=== PATIENT | male | born 1950 | race Two or more races ===

== ENCOUNTER 2016-08-31 12:24 | Emergency (ER) | payer MEDICARE, MEDICAID ==
[~2016-08-31] VITALS: Wt 100.0 kg
[2016-08-31] MEDS ORDERED: traMADol 50 MG TAB PO ONE (13:30)
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
--- NOTE | 2016-08-31 14:13 | RADRPT ---
PROCEDURE: Right knee x-ray CLINICAL INDICATION: trauma, fall TECHNIQUE: AP, lateral and oblique views of the knee were obtained. COMPARISON: None FINDINGS: There is normal mineralization. No acute fracture or dislocation is seen. There is joint space narrowing, subchondral sclerosis seen within the knee joint. There are also ost eophytes. This is more pronounced in the medial compartment. There is no significant soft tissue swelling. There is a suprapatellar joint effusion. 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 Suprapatellar joint effusion. .Yefri Stafford MD, MD Date Time Electronically viewed and signed by .Yefri Stafford MD, on 08/31/2016 14:13 .Esteban
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
[2016-08-31] MEDS ORDERED: KETOROLAC 30 MG INJ IM STA (14:51)
[2016-08-31] MEDS ORDERED: TRAM50TA2 PO (15:12)
[2016-08-31] MEDS ORDERED: NAPR-260 PO (15:12)
[2016-08-31 15:32] VITALS: BP 128/76; PULSE 75; RESP 19; TEMP 98.5
== END 2016-08-31 15:32 | disposition home or self-care (01) ==
LOC: FTE 12:24
DX: S89.91XA Unspecified injury of right lower leg, initial encounter (principal); I10 Essential (primary) hypertension; E11.9 Type 2 diabetes mellitus without complications; W10.9XXA Fall (on) (from) unspecified stairs and steps, initial encounter; Y92.480 Sidewalk as the place of occurrence of the external cause
CPT/HCPCS: 73550; 73562; 73590; 96372; 99284; J1885

== ENCOUNTER 2018-11-12 21:52 | Emergency (ER) | payer OTHER, MEDICAID ==
[~2018-11-12] VITALS: Wt 99.5 kg
[~2018-11-12 21:52] MED LIST: NAPR-985 PO; TRAM50TA2 PO
[2018-11-13] MEDS ORDERED: OXYC-279 PO (01:45)
[2018-11-13] MEDS ORDERED: MED4DP PO (01:45)
[2018-11-13] MEDS ORDERED: NAPR-985 PO (01:45)
[2018-11-13 02:15] VITALS: BP 160/89; PULSE 66; RESP 18
--- NOTE | 2018-11-13 02:18 | ERD ---
ER Documentation Chief Complaint Chief Complaint R ANKLE/ FOOT PAIN, SWEELING X'S 1 DAY HPI 68-year-old male presenting with right ankle pain and right foot pain. Patient states he had swelling for the last day. Denies any fevers. Denies any medic injuries. Has never had this happen before. States that he feels that sharp shooting pain down his foot. Medical history is diabetes and arthritis with hypertension. NKDA. Surgical history ankle surgery to the right ankle. Social history denies ROS All systems reviewed and are negative except as per history of present illness. Medications Home Meds Active Scripts Methylprednisolone* (Medrol* DOSE PACK) 4 Mg/Dose-Pack Tab.ds.pk, 4 MG PO . DIRECTED, #1 PACKET Prov:NINI RIVERA PA-C 11/13/18 Naproxen* (Naprosyn*) 500 Mg Tablet, 500 MG PO BID PRN for PAIN AND/OR INFLAMMATION, #30 TAB Prov:NINI RIVERA PA-C 11/13/18 Oxycodone HCl/Acetaminophen (Percocet 5-325 mg Tablet) 1 Each Tablet, 1 EACH PO DAILY, #5 TAB Prov:NINI RIVERA PA-C 11/13/18 Naproxen* (Naprosyn*) 500 Mg Tablet, 500 MG PO BID PRN for PAIN AND/OR INFLAMMATION, #30 TAB Prov:LINDA PALAFOX PA-C 08/31/16 Tramadol HCl (Tramadol HCl) 50 Mg Tablet, 50 MG PO Q4 PRN for PAIN, #20 TAB Prov:LINDA PALAFOX PA-C 08/31/16 Allergies Allergies: Coded Allergies: No Known Allergy (Unverified , 08/31/16) PMhx/Soc History of Surgery: Yes (shoulder and foot surgery) Hx Cardiac Disorders: Yes (hypertension) Hx Miscellaneous Medical Probl: Yes (diabetes mellitus; constipation; arthritis) Hx Alcohol Use: Yes (socially) Hx Substance Use: No Hx Tobacco Use: No Smoking Status: Never smoker FmHx Family History: No diabetes, No coronary disease, No other Physical Exam Vitals Vital Signs Date Temp Pulse Resp B/P (MAP) Pulse Ox O2 O2 Flow FiO2 Time Delivery Rate 11/12/18 99.6 79 18 153/67 96 21:58 (95) Physical Exam GENERAL: The patient is well-appearing, well-nourished, in no acute distress CHEST: Clear to auscultation bilaterally. There are no rales, wheezes or rhonchi. HEART: Regular rate and rhythm. No murmurs, clicks, rubs or gallops. EXTREMITIES: Equal pulses bilaterally. There is no peripheral clubbing, cyan osis or edema. No focal swelling or erythema. Full range of motion. Grossly neurovascularly intact. NEUROLOGIC: Alert and oriented. Cranial nerves II through XII intact. Motor strength in all 4 extremities with 5 out of 5 strength. Sensation grossly intact. SKIN: Swelling to lateral right ankle. No erythema. No lacerations of abrasions. Procedures/MDM DIAGNOSTIC IMAGING REPORT Patient: TAMMI GARCIA : 1950 Age: 68 Sex: M MR #: [id number] DOS: 11/12/18 2343 Ordering MD: LUCY RIVERA PA-C Location: [facility] Room/Bed: PROCEDURE: X-ray right ankle. CLINICAL INDICATION: Right ankle pain. Reference markers are directed towards the lateral and anterior aspects of the right ankle. TECHNIQUE: AP, lateral and oblique views of the right ankle. COMPARISON: None. FINDINGS: No acute fracture. Partially visualized surgical changes of rotational osteotomy and screw fixation at the distal first metatarsal. Plantar calcaneal enthesophyte. Os peroneus adjacent to the lateral calcaneus versus dystrophic calcifications in the distal peroneus longus status post remote trauma. Vascular calcifications are present. Soft tissue swelling over the bilateral and anterior right ankle. IMPRESSION: Soft tissue swelling, without acute fracture. MDM: 68-year-old male presenting with pain and swelling to to right ankle. I have low suspicion for acute fracture dislocation. I have low suspicion for infectious etiology. I have low suspicion for nerve deficit or impingement. I considered gout however there is no erythema or warmth and patient has no history. Patient will be discharged with supportive medications and told to follow-up with primary care within 1 to 2 days for close evaluation. All questions answered at discharge Departure Diagnosis: Primary Impression: Foot pain Condition: Stable Patient Instructions: Sprain Foot Referrals: [facility] YOU HAVE RECEIVED A MEDICAL SCREENING EXAM AND THE RESULTS INDICATE THAT YOU DO NOT HAVE A CONDITION THAT REQUIRES URGENT TREATMENT IN THE EMERGENCY DEPARTMENT. FURTHER EVALUATION AND TREATMENT OF YOUR CONDITION CAN WAIT UNTIL YOU ARE SEEN IN YOUR DOCTORS OFFICE WITHIN THE NEXT 1-2 DAYS. IT IS YOUR RESPONSIBILITY TO MAKE AN APPOINTMENT FOR FOLOW-UP CARE. IF YOU HAVE A PRIMARY DOCTOR --you should call your primary doctor and schedule an appointment IF YOU DO NOT HAVE A PRIMARY DOCTOR YOU CAN CALL OUR PHYSICIAN REFERRAL HOTLINE AT IF YOU CAN NOT AFFORD TO SEE A PHYSICIAN YOU CAN CHOSE FROM THE FOLLOWING FORMERLY [facility] [address] [facility] [address] [facility] [facility] [address] [facility] [address] [facility] [address] [facility] [facility]. [address] Additional Instructions: FOLLOW UP WITH YOUR PRIMARY CARE PHYSICIAN TOMORROW.Return to this facility if you are not improving as expected. NINI RIVERA PA-C Nov 13, 2018 02:18
== END 2018-11-13 02:16 | disposition home or self-care (01) ==
LOC: FTE 21:52
DX: M79.671 Pain in right foot (principal); I10 Essential (primary) hypertension; E11.9 Type 2 diabetes mellitus without complications